=== PATIENT | male | born 1960 | race Caucasian/White ===

== ENCOUNTER 2021-01-21 07:53 | Emergency (ER) | payer MEDICARE, OTHER ==
[~2021-01-21] VITALS: Ht 180.3 cm; Wt 112.1 kg
[2021-01-21] MEDS ORDERED: MORPHINE SULFATE 4 MG/ML DISP.SYRIN. ONE (08:06)
[2021-01-21] MEDS ORDERED: MORPHINE SULFATE 4 MG/ML DISP.SYRIN. IV ONE (08:15)
[2021-01-21] MEDS ORDERED: ETOMIDATE 40 MG/20 ML VIAL. INJ ONE (08:30)
[2021-01-21] MEDS ORDERED: IV NORMAL SALINE 1,000ML 1,000 ML IV ONE (08:30)
[2021-01-21] MEDS ORDERED: NEOMY/BACITR/POLYMYXIN OINT PACKET. TP ONE (08:30)
--- NOTE | 2021-01-21 08:40 | RAD ---
EXAM: Right shoulder, 2 views; right wrist, 3 views. HISTORY: Deformity. Fall. COMPARISON: None. FINDINGS: Right shoulder: 2 views of the right shoulder obtained. There is anterior right shoulder dislocation. There are suspected deformity of the glenoid fossa, suggesting a bony Bankart lesion of uncertain ch ronicity. There is mild acromial joint osteoarthritis. There is genu change involving the cervical sp ine, not formally assessed on this exam. Right wrist: 3 views of the right wrist are obtained. There is a tiny corticated ossicle adjacent to the ulnar styloid. There is no acute fracture, dislocation or subluxation. IMPRESSION: 1. Right shoulder anterior dislocation. There may be and associated bony Bankart lesion of uncertain chronicity. Radiographic follow-up following closed reduction is recommended to assess for a possible concomitant fracture. 2. No acute finding involving the right wrist. Electronically signed by: Carol Kelly MD (01/21/2021 8:38 AM) [id number]
[2021-01-21] MEDS ORDERED: KETOROLAC 15 MG/ML VIAL. IVP ONE (09:00)
[2021-01-21] MEDS ORDERED: HYDR-2155 PO (09:42)
--- NOTE | 2021-01-21 09:48 | PHYS DOC ---
Past History Additional Past Medical Histor: grave's dx; spondelosis; ridic B legs; neuropathy b feet; stenosis C2-C3 Past Surgical History: Appendectomy, Other Additional Past Surgical Histo: bwel resection; mesh placed in abd Smoking: Quit Greater Than 1 Year Alcohol Use: None Drug Use: None General Adult EDM: Chief Complaint: MECHANICAL FALL HPI: HPI: Patient is a 60 year old male who presents with right shoulder pain and abrasions to head, right elbow, and right knee secondary to fall onto asphalt surface 20 min prior to ED arrival. He doesn't think he lost consciousness. Review of Systems: Review of Systems: Constitutional: Denies fever or chills Eyes: Denies redness or eye pain HENT: Denies nasal congestion or sore throat Respiratory: Denies cough or shortness of breath Cardiovascular: Denies chest pain or palpitations GI: Denies abdominal pain, nausea, or vomiting : Denies dysuria or hematuria Musculoskeletal: Denies back pain or joint pain Integument: Abrasions to right knee, right elbow, forehead Neurologic: Denies headache, focal weakness or sensory changes Complete systems were reviewed and found to be within normal limits, except as documented in this note. Current Medications: Current Meds: Current Medications Medications (Trade) Dose Ordered Sig/Leslie Start Time Stop Time Status Last Admin Dose Admin Etomidate (Amidate) 10 mg 1X ONCE 01/21/21 08:30 01/21/21 08:31 DC 01/21/21 09:06 10 MG Fentanyl Citrate (Fentanyl 2ml Vial) 100 mcg 1X ONCE 01/21/21 08:30 01/21/21 08:31 DC 01/21/21 09:08 100 MCG Ketorolac Tromethamine (Toradol 15mg Vial) 15 mg 1X ONCE 01/21/21 09:00 01/21/21 09:01 DC 01/21/21 09:03 15 MG Morphine Sulfate (Morphine 4mg Syringe) 4 mg 1X ONCE 01/21/21 08:15 01/21/21 08:16 DC 01/21/21 09:07 4 MG Neomycin/ Polymyxin/ Bacitracin (Triple Antibiotic Ointment) 1 pkt 1X ONCE 01/21/21 08:30 01/21/21 08:31 DC 01/21/21 09:09 1 PKT Sodium Chloride 1,000 ml @ 1,000 mls/hr 1X ONCE 01/21/21 08:30 01/21/21 09:29 DC 01/21/21 09:09 1,000 MLS/HR Allergies: Allergies: Allergies Coded Allergies Type Severity Reaction Last Updated Verified No Known Drug Allergies 01/21/21 No Physical Exam: PE: Constitutional: Well developed, well nourished, no acute distress, non-toxic appearance HENT: Normocephalic, TM clear b/l, no grant sign Eyes: PERRL, EOMI, conjunctiva normal, no discharge Neck: Normal range of motion, no tenderness, supple Lungs & Thorax: No respiratory distress, equal chest rise and fall Abdomen: Soft, no tenderness Skin: Warm, dry, no erythema, no rash Back: No tenderness, no CVA tenderness Extremities: no edema Neurologic: Alert and oriented X 3, normal motor function, normal sensory function, no focal deficits noted Psychologic: Affect normal, judgment normal Current Patient Data: Vital Signs: Vital Signs Date Time Temp Pulse Resp B/P (MAP) Pulse Ox O2 Delivery O2 Flow Rate FiO2 01/21/21 09:08 16 98 Nasal Cannula 2.0 01/21/21 08:30 50 01/21/21 07:55 97.7 166/67 EKG: EKG: [] Radiology/Procedures: Radiology/Procedures: PROCEDURE: SHOULDER 2+V RIGHT EXAM: Right shoulder, 2 views; right wrist, 3 views. HISTORY: Deformity. Fall. COMPARISON: None. FINDINGS: Right shoulder: 2 views of the right shoulder obtained. There is anterior right shoulder dislocation. There are suspected deformity of the glenoid fossa, suggesting a bony Bankart lesion of uncertain chronicity. There is mild acromial joint osteoarthritis. There is genu change involving the cervical spine, not formally assessed on this exam. Right wrist: 3 views of the right wrist are obtained. There is a tiny corticated ossicle adjacent to the ulnar styloid. There is no acute fracture, dislocation or subluxation. IMPRESSION: 1. Right shoulder anterior dislocation. There may be and associated bony Bankart lesion of uncertain chronicity. Radiographic follow-up following closed reduction is recommended to assess for a possible concomitant fracture. 2. No acute finding involving the right wrist. Electronically signed by: Carol Kelly MD (01/21/2021 8:38 AM) [id number] PROCEDURE: WRIST 3V RIGHT EXAM: Right shoulder, 2 views; right wrist, 3 views. HISTORY: Deformity. Fall. COMPARISON: None. FINDINGS: Right shoulder: 2 views of the right shoulder obtained. There is anterior right shoulder dislocation. There are suspected deformity of the glenoid fossa, suggesting a bony Bankart lesion of uncertain chronicity. There is mild acromial joint osteoarthritis. There is genu change involving the cervical spine, not formally assessed on this exam. Right wrist: 3 views of the right wrist are obtained. There is a tiny corticated ossicle adjacent to the ulnar styloid. There is no acute fracture, dislocation or subluxation. IMPRESSION: 1. Right shoulder anterior dislocation. There may be and associated bony Bankart lesion of uncertain chronicity. Radiographic follow-up following closed reduction is recommended to assess for a possible concomitant fracture. 2. No acute finding involving the right wrist. Electronically signed by: Carol Kelly MD (01/21/2021 8:38 AM) [id number] PROCEDURE: SHOULDER 2+V RIGHT EXAM: Right shoulder, 2 views; left thumb, 3 views. HISTORY: Closed reduction. Pain. COMPARISON: None. FINDINGS: Right shoulder: 2 views of the right shoulder obtained. There has been closed reduction of recently demonstrated right shoulder dislocation. There are bone fragments along the superior lateral humeral head which appear corticated and may be chronic in etiology. There is mild acromioclavicular joint osteoarthr itis. There are calcified granulomas. There is degenerative change involving the visualized cervical spine. Left thumb: 3 views left thumb are obtained. There is no acute fracture, dislocation or subluxation. There is no radiodense foreign body. IMPRESSION: 1. Closed reduction of the right glenohumeral joint. There are bone fragments adjacent to the humeral head which may be due to chronic nonunited fracture fragments. CT can better assess for acute fracture is clinically indicated. 2. No acute finding involving the left thumb. Electronically signed by: Carol Kelly MD (01/21/2021 9:56 AM) [id number] PROCEDURE: FINGER(S) LEFT EXAM: Right shoulder, 2 views; left thumb, 3 views. HISTORY: Closed reduction. Pain. COMPARISON: None. FINDINGS: Right shoulder: 2 views of the right shoulder obtained. There has been closed reduction of recently demonstrated right shoulder dislocation. There are bone fragments along the superior lateral humeral head which appear corticated and may be chronic in etiology. There is mild acromioclavicular joint osteoarthritis. There are calcified granulomas. There is degenerative change involving the visualized cervical spine. Left thumb: 3 views left thumb are obtained. There is no acute fracture, dislocation or subluxation. There is no radiodense foreign body. IMPRESSION: 1. Closed reduction of the right glenohumeral joint. There are bone fragments adjacent to the humeral head which may be due to chronic nonunited fracture fragments. CT can better assess for acute fracture is clinically indicated. 2. No acute finding involving the left thumb. Electronically signed by: Carol Kelly MD (01/21/2021 9:56 AM) [id number] Heart Score: C/O Chest Pain: N/A Course & Med Decision Making: Course & Med Decision Making Pt presented to ED via ambulance with severe right shoulder pain and abrasions to forehead, right elbow, and right knee. Pt required arm support to prevent pain from tension on right shoulder. XR showed anterior dislocation of right shoulder and no fractures of shoulder or wrist. Pt was sedated and his right shoulder was relocated and immobilized resulting in immediate relief of pain in shoulder. Pt then reported pain at base of left thumb. XR of left hand showed no fracture. Patient stable for discharge with outpatient follow-up with PCP. Discussed findings and plan with patient, who acknowledges understanding and agreement. Jeannine Disclaimer: Jeannine Disclaimer: This electronic medical record was generated, in whole or in part, using a voice recognition dictation system. Departure Departure: Impression: Primary Impression: Fall Qualified Codes: W19.XXXA - Unspecified fall, initial encounter Additional Impressions: Shoulder dislocation Qualified Codes: S43.004A - Unspecified dislocation of right shoulder joint, initial encounter Right wrist sprain Qualified Codes: S63.501A - Unspecified sprain of right wrist, initial enco unter Left thumb sprain Qualified Codes: S63.642A - Sprain of metacarpophalangeal joint of left thumb, initial encounter Abrasions of multiple sites Disposition: HOME / SELF CARE / HOMELESS Condition: STABLE Referrals: OLGA LIDIA HAY (PCP) LYDIA TORO MD Patient Instructions: Abrasion, [id number], Finger Sprain, [id number], RICE - Routine Care for Injuries, [id number], Sedation, Moderate, Adult, Shoulder Dislocation, [id number], Shoulder Immobilizer, Wrist Sprain with Rehab- [facility] Additional Instructions: Do not soak your wound. You may shower. Clean wound daily with soap and water. Change dressing 2 times daily. Use over the counter antibiotic ointment with each dressing change. Use over the counter Ibuprofen in addition for pain or discomfort. ICE area of discomfort 20 min on then off for next few days as needed. Scripts Hydrocodone Bit/Acetaminophen (HYDROCODONE-APAP 5-325 ) 1 Each Tablet 0.5-1 TAB PO PRN Q6HRS PRN for PAIN, #10 TAB 0 Refills Prov: YANETH MEZA DO 01/21/21 YANETH MEZA DO Jan 21, 2021 09:48
--- NOTE | 2021-01-21 09:58 | RAD ---
EXAM: Right shoulder, 2 views; left thumb, 3 views. HISTORY: Closed reduction. Pain. COMPARISON: None. FINDINGS: Right shoulder: 2 views of the right shoulder obtained. There has been closed reduction of recently d emonstrated right shoulder dislocation. There are bone fragments along the superior lateral humeral h ead which appear corticated and may be chronic in etiology. There is mild acromioclavicular joint ost eoarthritis. There are calcified granulomas. There is degenerative change involving the visualized ce rvical spine. Left thumb: 3 views left thumb are obtained. There is no acute fracture, dislocation or subluxation. There is no radiodense foreign body. IMPRESSION: 1. Closed reduction of the right glenohumeral joint. There are bone fragments adjacent to the humeral head which may be due to chronic nonunited fracture fragments. CT can better assess for acute fractu re is clinically indicated. 2. No acute finding involving the left thumb. Electronically signed by: Carol Kelly MD (01/21/2021 9:56 AM) [id number]
[2021-01-21 10:00] VITALS: BP 129/98
== END 2021-01-21 10:00 | disposition home or self-care (01) ==
LOC: ER 07:53
DX: S43.004A Unspecified dislocation of right shoulder joint, initial encounter (principal); S63.501A Unspecified sprain of right wrist, initial encounter; S63.642A Sprain of metacarpophalangeal joint of left thumb, initial encounter; S80.211A Abrasion, right knee, initial encounter; S50.311A Abrasion of right elbow, initial encounter; S00.81XA Abrasion of other part of head, initial encounter; Z87.891 Personal history of nicotine dependence; W18.39XA Other fall on same level, initial encounter; Y93.89 Activity, other specified; Y92.89 Other specified places as the place of occurrence of the external cause; Y99.8 Other external cause status
CPT/HCPCS: 23650; 29125; 73030; 73110; 73140; 96361; 96374; 96375; 99152; 99285; J1885; J2270; J3010; J7030